=== PATIENT | male | born 1990 | race Caucasian/White ===

== ENCOUNTER 2018-07-08 21:37 | Emergency (ER) | payer OTHER ==
[~2018-07-08] VITALS: Ht 165.1 cm; Wt 81.8 kg
[2018-07-08] MEDS ORDERED: cefTRIAXone SOD 1 GM in D5W MINI-BAG PLUS 50 ML IV ONE (22:30)
[2018-07-08] MEDS ORDERED: HYDR-3715 PO (23:02)
[2018-07-08] MEDS ORDERED: KEFL500C17 PO (23:02)
[2018-07-08] MEDS ORDERED: NORCO 5/325MG TABLET (BULK FOR ED) PO ONE (23:15)
[2018-07-09 00:04] VITALS: BP 135/80
== END 2018-07-09 00:11 | disposition home or self-care (01) ==
LOC: M ED 21:37
DX: L03.032 Cellulitis of left toe (principal); S90.452A Superficial foreign body, left great toe, initial encounter; X58.XXXA Exposure to other specified factors, initial encounter; Y92.099 Unspecified place in other non-institutional residence as the place of occurrence of the external cause; Y93.9 Activity, unspecified; Y99.9 Unspecified external cause status; Z72.0 Tobacco use
CPT/HCPCS: 96365; 99283; J0696

== ENCOUNTER 2022-06-19 19:34 | Emergency (ER) | payer MEDICAID, OTHER ==
[~2022-06-19] VITALS: Ht 165.1 cm; Wt 67.7 kg
[~2022-06-19 19:34] MED LIST: HYDR-3715 PO; KEFL500C17 PO
[2022-06-19] MEDS ORDERED: NS 2,030 ML in IV 1 EA IV ONE (20:05)
[2022-06-19] MEDS ORDERED: ISOVUE-370 76% 100ML VIAL As Ordered ONE (20:09)
[2022-06-19] MEDS ORDERED: MORPHINE 4 MG/ML 1ML VIAL IV ONE (20:10)
[2022-06-19] MEDS ORDERED: ACETAMINOPHEN 325 MG TAB PO ONE (20:10)
[2022-06-19] MEDS ORDERED: ONDANSETRON 4MG 2ML VIAL IV ONE (20:10)
[2022-06-19 20:37] LABS: BASO # 0.1 10^3/uL (0.0-0.2); BASO % 0.6 % (0.0-1.0); EOS # 0.1 10^3/uL (0.0-0.5); EOS % 1.2 % (0.0-3.0); HEMATOCRIT 28.3 % (42.0-52.0); HEMOGLOBIN 9.9 g/dl (13.5-17.5); LYMPH # 0.6 10^3/uL (1.5-5.0); MEAN CORPUSCULAR HEMOGLOBIN 30.3 pg (27.0-33.0); MEAN CORPUSCULAR VOLUME 86.5 fl (80.0-96.0); MONO % 11.6 % (2.0-8.0); NEUTROPHILS # 6.7 10^3/uL (1.5-8.5); NEUTROPHILS % 78.8 % (36.0-66.0); PLATELET COUNT, AUTOMATED 284 10^3/uL (150-450); RED BLOOD COUNT 3.27 10^6/uL (4.30-6.10); WHITE BLOOD COUNT 8.5 10^3/uL (4.0-10.0)
[2022-06-19 20:51] LABS: CK-MB VALUE MASS < 1.0 NG/ML (<3.6)
[2022-06-19 20:52] LABS: ALBUMIN 3.5 G/DL (3.2-5.2); ALKALINE PHOSPHATASE 144 U/L (46-116); ALT/SGPT 239 U/L (7.0-40); AST/SGOT 199 U/L (<34); BILIRUBIN,DIRECT < 0.1 MG/DL (<0.4); BILIRUBIN,TOTAL 0.2 MG/DL (0.3-1.2); BLOOD UREA NITROGEN 17 MG/DL (9-23); CALCIUM LEVEL 8.2 MG/DL (8.5-10.1); CARBON DIOXIDE LEVEL 29 MMOL/L (20-31); CHLORIDE LEVEL 104 MMOL/L (98-107); CPK CREATINE PHOSPHOKINASE 506 U/L (46-171); CREATININE FOR GFR 0.88 MG/DL (0.70-1.30); GLOMERULAR FILTRATION RATE > 60.0 (>60); GLUCOSE, FASTING 106 MG/DL (60-100); MB/CK RELATIVE INDEX 0.19 (< OR =4); POTASSIUM SERUM 4.4 MMOL/L (3.5-5.1); SODIUM LEVEL 137 MMOL/L (136-145); TOTAL PROTEIN 6.1 G/DL (5.7-8.2)
[2022-06-19 20:59] LABS: RSV AMPLIFICATION NEGATIVE (NEGATIVE)
[2022-06-19 21:00] VITALS: BP 138/61
[2022-06-19] MEDS ORDERED: DULC5TAB PO (21:36)
[2022-06-19] MEDS ORDERED: COLA100C5 PO (21:36)
[2022-06-19] MEDS ORDERED: BENZ200C70 PO (21:36)
[2022-06-19] MEDS ORDERED: HYDR-3713 PO (21:36)
[2022-06-19] MEDS ORDERED: BISACODYL 10MG SUPP PR ONE (21:45)
[2022-06-19] MEDS ORDERED: KETOROLAC 30 MG/ML 1ML VIAL IV ONE (21:50)
[2022-06-19] MEDS ORDERED: PERCOCET 5MG/325MG TAB PO ONE (22:25)
== END 2022-06-19 22:37 | disposition home or self-care (01) ==
LOC: M ED 19:34
DX: U07.1 COVID-19 (principal); K59.00 Constipation, unspecified; R74.01 Elevation of levels of liver transaminase levels; F17.200 Nicotine dependence, unspecified, uncomplicated; R00.0 Tachycardia, unspecified; Z79.899 Other long term (current) drug therapy
CPT/HCPCS: 71045; 71275; 74177; 80047; 80048; 80076; 82550; 82553; 83605; 85025; 87040; 87631; 93005; 93041; 94760; 96374; 96375; 99284; J2405; Q9967